=== PATIENT | male | born 1975 | race Caucasian/White ===

== ENCOUNTER 2019-02-05 10:28 | Emergency (ER) | payer MEDICARE ==
[~2019-02-05] VITALS: Ht 182.9 cm; Wt 82.3 kg
[2019-02-05 10:33] VITALS: BP 138/110
--- NOTE | 2019-02-05 12:06 | NUR ---
TELEVISION RECEIVER ANALYZER AT BEDSIDE
== END 2019-02-05 12:16 | disposition home or self-care (01) ==
LOC: ER 10:29
DX: M25.421 Effusion, right elbow (principal)
CPT/HCPCS: 29105; 73080; 99283

== ENCOUNTER 2019-02-14 09:14 | Outpatient (CLI) | payer MEDICARE ==
[2019-02-14 09:21] VITALS: BP 159/105
== END 2019-02-14 09:46 | disposition home or self-care (01) ==
LOC: ORTHO 09:14
PROVIDERS: ATTEND Nurse Practitioner Family
DX: S59.901D Unspecified injury of right elbow, subsequent encounter (principal); I10 Essential (primary) hypertension; Z87.891 Personal history of nicotine dependence; V80.010D Animal-rider injured by fall from or being thrown from horse in noncollision accident, subsequent encounter
CPT/HCPCS: 73080; 99213; A4590

== ENCOUNTER 2023-01-20 08:47 | Emergency (ER) | payer BC, MEDICAID ==
[~2023-01-20] VITALS: Ht 182.9 cm; Wt 79.0 kg
[~2023-01-20 08:47] MED LIST: BACL-11 PO; BUPR-297 PO; GABA-532 PO; HYDR-4353 PO; IBUP-1985 PO; LISI40TA13 PO; METH-603 PO; MONT10TA21 PO; VENL150C58 PO
--- NOTE | 2023-01-20 08:59 | NUR ---
MD AWARE OF CRITICAL GLUCOSE AND PTS NON-HISTORY OF DIABETES. VERBAL ORDER FOR FULL SET OF LABS.
[2023-01-20 09:15] LABS: BASOPHILS % (AUTO) 0.1 % (0-1); EOSINOPHILS # (AUTO) 0.1 X10'3 (0-0.9); EOSINOPHILS % (AUTO) 1.1 % (0-6); HEMATOCRIT 43.9 % (42.0-52.0); HEMOGLOBIN 14.9 g/dl (14.0-17.9); LYMPHOCYTES # (AUTO) 1.4 X10'3 (1.1-4.8); LYMPHOCYTES % (AUTO) 19.4 % (21-51); MEAN CORPUSCULAR HEMOGLOBIN 33.4 PG (27.0-31.0); MEAN CORPUSCULAR HGB CONC 33.8 g/dL (33.0-36.5); MEAN CORPUSCULAR VOLUME 98.7 FL (78-98); MONOCYTES # (AUTO) 0.8 X10'3 (0-0.9); MONOCYTES % (AUTO) 10.6 % (2-12); NEUTROPHILS % (AUTO) 68.8 % (42-75); PLATELET COUNT 212 X10'3 (140-440); RED BLOOD COUNT 4.45 X10'6 (4.70-6.10); RED CELL DISTRIBUTION WIDTH 12.6 % (11.5-14.5); WHITE BLOOD COUNT 7.2 X10'3 (4.5-11.0)
[2023-01-20 09:36] LABS: ALANINE AMINOTRANSFERASE 71 U/L (12-78); ALBUMIN 3.7 G/DL (3.4-5.0); ALKALINE PHOSPHATASE 284 IU/L (46-116); ANION GAP 15 (8-16); BILIRUBIN,TOTAL 0.5 MG/DL (0.1-1.0); BLOOD UREA NITROGEN 15 MG/DL (7-18); BUN/CREATININE RATIO 10.6 (5.4-32.0); CALCIUM 9.4 MG/DL (8.5-10.1); CHLORIDE 88 MMOL/L (99-107); CREATININE 1.42 MG/DL (0.60-1.10); LIPASE 103 U/L (73-393); POTASSIUM 4.7 MMOL/L (3.5-5.1); SODIUM 128 MMOL/L (135-145); TOTAL CARBON DIOXIDE 24.8 MMOL/L (24-32); TOTAL PROTEIN 7.3 G/DL (6.4-8.2); eGFR 53 ML/MIN
[2023-01-20 09:59] LABS: ASPARTATE AMINO TRANSFERASE 33 U/L (10-37)
[2023-01-20 10:02] LABS: GLUCOSE 603 MG/DL (70-104)
[2023-01-20] MEDS: normal saline 1000ml 1,000 ML IV ONE ×2 (10:44→10:55)
[2023-01-20] MEDS: insulin Lispro (HumaLOG) vial - multi-dose SQ ONE (11:03)
[2023-01-20 13:25] LABS: ALBUMIN 3.6 G/DL (3.4-5.0); ANION GAP 8 (8-16); BLOOD UREA NITROGEN 12 MG/DL (7-18); BUN/CREATININE RATIO 9.8 (5.4-32.0); CALCIUM 9.5 MG/DL (8.5-10.1); CHLORIDE 100 MMOL/L (99-107); CREATININE 1.22 MG/DL (0.60-1.10); GLUCOSE 259 MG/DL (70-104); POTASSIUM 3.6 MMOL/L (3.5-5.1); SODIUM 136 MMOL/L (135-145); TOTAL CARBON DIOXIDE 28.1 MMOL/L (24-32); eGFR 63 ML/MIN
[2023-01-20 13:37] VITALS: BP 116/74
[2023-01-20] MEDS ORDERED: METF-900 PO (15:39)
== END 2023-01-20 14:35 | disposition home or self-care (01) ==
LOC: ER 08:47
DX: E11.65 Type 2 diabetes mellitus with hyperglycemia (principal); E86.0 Dehydration; Z79.899 Other long term (current) drug therapy; Z79.1 Long term (current) use of non-steroidal anti-inflammatories (NSAID)
CPT/HCPCS: 36415; 80048; 80053; 82948; 83690; 85025; 96360; 96372; 99283; J1815; J7030

== ENCOUNTER 2023-06-29 06:00 | Emergency (ER) | payer BC, MEDICAID ==
[~2023-06-29] VITALS: Ht 182.9 cm; Wt 78.8 kg
[~2023-06-29 06:00] MED LIST changes: +MONT-47 PO; -MONT10TA21 PO
[2023-06-29 06:25] VITALS: BP 117/84; PULSE 62; TEMP 98; O2SAT 95
[2023-06-29] MEDS ORDERED: morphine 4 MG/ML inj SYRINge IV ONE (10:30)
[2023-06-29] MEDS ORDERED: diazepam inj 5 MG/ML inj. IV ONE (10:30)
[2023-06-29] MEDS ORDERED: ondansetron/PF 4mg/2ml inj IV ONE (10:30)
--- NOTE | 2023-06-29 11:32 | NUR ---
Not in lobby at 1035, 1100 and 1132
== END 2023-06-29 11:33 | disposition left against medical advice (07) ==
LOC: ER 06:00
DX: R10.9 Unspecified abdominal pain (principal); Z53.21 Procedure and treatment not carried out due to patient leaving prior to being seen by health care provider
CPT/HCPCS: 99281

== ENCOUNTER 2023-11-10 03:40 | Emergency (ER) | payer BC, MEDICAID ==
[~2023-11-10] VITALS: Ht 182.9 cm; Wt 75.0 kg
[2023-11-10 03:52] VITALS: BP 140/95; PULSE 95; RESP 17; TEMP 98; O2SAT 97
== END 2023-11-10 07:08 | disposition left against medical advice (07) ==
LOC: ER 03:41
DX: R63.0 Anorexia (principal); Z53.21 Procedure and treatment not carried out due to patient leaving prior to being seen by health care provider
CPT/HCPCS: 99281

== ENCOUNTER 2023-11-19 20:29 | Emergency (ER) | payer BC, MEDICAID ==
[~2023-11-19] VITALS: Ht 182.9 cm; Wt 79.9 kg
[2023-11-19 21:44] LABS: BILIRUBIN,URINE NEGATIVE (Neg); CLARITY,URINE CLEAR (Clear); COLOR,URINE YELLOW (Yellow); GLUCOSE, URINE >=1000 mg/dl (Neg); KETONES,URINE NEGATIVE (Neg); LEUKOCYTE ESTERASE ,URINE NEGATIVE (Neg); NITRITES, URINE NEGATIVE (Neg); OCCULT BLOOD,URINE NEGATIVE (Neg); PROTEIN,URINE NEGATIVE (Neg); UROBILINOGEN,URINE 0.2 E.U/dL (0.2-1.0)
[2023-11-19 21:45] LABS: UA COLLECTION TYPE CLN CATCH MIDSTREAM
[2023-11-19 21:50] LABS: BASOPHILS # (AUTO) 0.1 X10'3 (0-0.2); BASOPHILS % (AUTO) 0.8 % (0-1); EOSINOPHILS # (AUTO) 0.4 X10'3 (0-0.9); EOSINOPHILS % (AUTO) 4.7 % (0-6); HEMATOCRIT 39.2 % (42.0-52.0); HEMOGLOBIN 12.8 g/dl (14.0-17.9); LYMPHOCYTES # (AUTO) 1.7 X10'3 (1.1-4.8); LYMPHOCYTES % (AUTO) 21.8 % (21-51); MEAN CORPUSCULAR HEMOGLOBIN 31.9 PG (27.0-31.0); MEAN CORPUSCULAR HGB CONC 32.7 g/dL (33.0-36.5); MEAN CORPUSCULAR VOLUME 97.4 FL (78-98); MONOCYTES % (AUTO) 12.3 % (2-12); NEUTROPHILS # (AUTO) 4.8 X10'3 (1.8-7.7); NEUTROPHILS % (AUTO) 60.4 % (42-75); PLATELET COUNT 268 X10'3 (140-440); RED BLOOD COUNT 4.03 X10'6 (4.70-6.10); RED CELL DISTRIBUTION WIDTH 14.3 % (11.5-14.5); WHITE BLOOD COUNT 7.9 X10'3 (4.5-11.0)
[2023-11-19 21:51] LABS: WBC,URINE NONE SEEN /HPF (0-4)
[2023-11-19 21:52] LABS: BACTERIA,URINE NONE SEEN /HPF (Neg); MUCUS STRANDS NONE SEEN /LPF (Neg); RBC,URINE 0-2 /HPF (0-2); SQUAMOUS EPITHELIAL CELL,UR FEW /LPF (FEW)
[2023-11-19 22:01] LABS: ALANINE AMINOTRANSFERASE 23 U/L (12-78); ALBUMIN 3.2 G/DL (3.4-5.0); ALBUMIN/GLOBULIN RATIO 0.7 (1.1-1.5); ALKALINE PHOSPHATASE 101 IU/L (46-116); ANION GAP 10 (8-16); ASPARTATE AMINO TRANSFERASE 18 U/L (10-37); BILIRUBIN,TOTAL 0.3 MG/DL (0.1-1.0); BLOOD UREA NITROGEN 8 MG/DL (7-18); BUN/CREATININE RATIO 8.8 (10.0-20.0); CALCIUM 8.9 MG/DL (8.5-10.1); CHLORIDE 100 MMOL/L (99-107); CREATININE 0.91 MG/DL (0.60-1.10); GLUCOSE 255 MG/DL (70-104); POTASSIUM 3.9 MMOL/L (3.5-5.1); SODIUM 137 MMOL/L (135-145); TOTAL PROTEIN 7.6 G/DL (6.4-8.2); eCRCL 107 ML/MIN; eGFR 88 ML/MIN
[2023-11-19 22:19] LABS: LIPASE > 375 U/L (16-77)
[2023-11-19] MEDS ORDERED: meperidine/PF 50mg/ml syringe IV ONE (22:35)
[2023-11-19] MEDS ORDERED: meperidine/PF 25mg/ml syringe IV ONE (23:30)
[2023-11-19] MEDS ORDERED: normal saline 1000ML IV soln IVB ONE (23:30)
[2023-11-19] MEDS ORDERED: diltiazem 5mg/ml 5ml inj. IV ONE (23:40)
[2023-11-19] MEDS ORDERED: HYDROcodone/acetaminophen 10/325mg tab PO ONE (23:40)
[2023-11-19] MEDS ORDERED: carVEDilol 3.125mg tablet PO SCH (23:40)
[2023-11-20 01:07] VITALS: BP 106/80; PULSE 78; RESP 13; TEMP 98.3; O2SAT 98
== END 2023-11-20 01:14 | disposition home or self-care (01) ==
LOC: ER 20:30
DX: K85.90 Acute pancreatitis without necrosis or infection, unspecified (principal)
CPT/HCPCS: 36415; 80053; 81001; 82948; 83690; 85025; 96361; 96374; 99283; J2175; J7030

== ENCOUNTER 2024-05-03 12:31 | Emergency (ER) | payer BC, MEDICAID ==
[~2024-05-03] VITALS: Ht 182.9 cm; Wt 84.4 kg
[~2024-05-03 12:31] MED LIST changes: -IBUP-1985 PO; +LISD60CA PO; +PANT-47 PO
[2024-05-03] MEDS ORDERED: ketorolac trometh. 30mg/ml inj. IM ONE (12:40)
[2024-05-03] MEDS: cyclobenzaprine 10mg tablet PO ONE (13:11)
[2024-05-03] MEDS ORDERED: LIDO700A32 TOP (13:16)
[2024-05-03] MEDS: ketorolac tromethamine 15mg/ml inj. IM ONE (13:16)
[2024-05-03 13:29] VITALS: BP 119/78; PULSE 99; RESP 17; TEMP 98.1; O2SAT 95
== END 2024-05-03 13:32 | disposition home or self-care (01) ==
LOC: ER 12:32
DX: S46.011A Strain of muscle(s) and tendon(s) of the rotator cuff of right shoulder, initial encounter (principal); E11.9 Type 2 diabetes mellitus without complications; F10.90 Alcohol use, unspecified, uncomplicated; Z79.899 Other long term (current) drug therapy; X58.XXXA Exposure to other specified factors, initial encounter; Y93.89 Activity, other specified; Y92.89 Other specified places as the place of occurrence of the external cause; Y99.8 Other external cause status
CPT/HCPCS: 73030; 96372; 99283; J1885; A4565

== ENCOUNTER 2024-05-07 10:04 | Emergency (ER) | payer BC, MEDICAID ==
[~2024-05-07] VITALS: Ht 182.9 cm; Wt 80.2 kg
[~2024-05-07 10:04] MED LIST changes: +LIDO700A32 TOP
[2024-05-07 10:26] VITALS: BP 151/85; PULSE 89; RESP 14; TEMP 98.6; O2SAT 99
[2024-05-07 11:55] LABS: URINE AMPHETAMINE SCREEN NEGATIVE (Neg); URINE BARBITUATE SCREEN NEGATIVE (Neg); URINE BENZODIAZEPINES SCREEN POSITIVE (Neg); URINE CANNABINOID SCREEN NEGATIVE (Neg); URINE COCAINE SCREEN NEGATIVE (Neg); URINE METHADONE SCREEN NEGATIVE (Neg); URINE OPIATE SCREEN NEGATIVE (Neg); URINE PHENCYCLIDINE SCREEN NEGATIVE (Neg)
== END 2024-05-07 12:17 | disposition left against medical advice (07) ==
LOC: ER 10:05
DX: Z51.81 Encounter for therapeutic drug level monitoring (principal); Z53.21 Procedure and treatment not carried out due to patient leaving prior to being seen by health care provider
CPT/HCPCS: 80305

== ENCOUNTER 2024-05-10 08:59 | Emergency (ER) | payer BC, MEDICAID ==
[~2024-05-10] VITALS: Ht 182.9 cm; Wt 85.1 kg
[2024-05-10 09:56] LABS: URINE AMPHETAMINE SCREEN NEGATIVE (Neg); URINE BARBITUATE SCREEN NEGATIVE (Neg); URINE BENZODIAZEPINES SCREEN POSITIVE (Neg); URINE CANNABINOID SCREEN NEGATIVE (Neg); URINE COCAINE SCREEN NEGATIVE (Neg); URINE METHADONE SCREEN NEGATIVE (Neg); URINE OPIATE SCREEN NEGATIVE (Neg); URINE PHENCYCLIDINE SCREEN NEGATIVE (Neg)
[2024-05-10 10:19] VITALS: BP 145/114; PULSE 87; RESP 17; TEMP 98.6; O2SAT 99
== END 2024-05-10 10:21 | disposition home or self-care (01) ==
LOC: ER 09:00
DX: F10.20 Alcohol dependence, uncomplicated (principal); E11.9 Type 2 diabetes mellitus without complications; Z79.899 Other long term (current) drug therapy
CPT/HCPCS: 80305; 99283

== ENCOUNTER 2024-07-04 16:38 | Emergency (ER) | payer BC, MEDICAID ==
[~2024-07-04] VITALS: Ht 182.9 cm; Wt 85.0 kg
[2024-07-04 16:43] VITALS: BP 112/85; O2SAT 95
[2024-07-04 18:35] VITALS: PULSE 77; RESP 14; TEMP 98.2
== END 2024-07-04 18:43 | disposition home or self-care (01) ==
LOC: ER 16:38
DX: S16.1XXA Strain of muscle, fascia and tendon at neck level, initial encounter (principal); S50.01XA Contusion of right elbow, initial encounter; S30.0XXA Contusion of lower back and pelvis, initial encounter; S09.90XA Unspecified injury of head, initial encounter; E11.9 Type 2 diabetes mellitus without complications; W17.81XA Fall down embankment (hill), initial encounter; Y93.89 Activity, other specified; Y92.89 Other specified places as the place of occurrence of the external cause; Y99.8 Other external cause status
CPT/HCPCS: 70450; 72100; 72125; 73080; 73630; 99284; L0172

== ENCOUNTER 2024-07-18 22:23 | Emergency (ER) | payer BC ==
[~2024-07-18] VITALS: Ht 172.7 cm; Wt 78.8 kg
[2024-07-18] MEDS: dextrose 50%-water 50ml dispensing syringe IV ONE ×2 (22:50→22:51)
[2024-07-18] MEDS ORDERED: dextrose ORAL solution 15 GM/59 ML bottle PO ONE (22:50)
[2024-07-18 22:56] LABS: BASOPHILS # (AUTO) 0.1 X10'3 (0-0.2); EOSINOPHILS # (AUTO) 0.3 X10'3 (0-0.9); LYMPHOCYTES % (AUTO) 62.2 % (21-51); MONOCYTES # (AUTO) 0.7 X10'3 (0-0.9)
[2024-07-18 22:57] LABS: BASOPHILS % (AUTO) 1.3 % (0-1); EOSINOPHILS % (AUTO) 2.6 % (0-6); HEMATOCRIT 42.7 % (42.0-52.0); HEMOGLOBIN 14.2 g/dl (14.0-17.9); LYMPHOCYTES # (AUTO) 6.8 X10'3 (1.1-4.8); MEAN CORPUSCULAR HEMOGLOBIN 33.3 PG (27.0-31.0); MEAN CORPUSCULAR HGB CONC 33.3 g/dL (33.0-36.5); MEAN CORPUSCULAR VOLUME 100.1 FL (78-98); MEAN PLATELET VOLUME 7.4 FL (7.4-10.4); MONOCYTES % (AUTO) 6.6 % (2-12); NEUTROPHILS % (AUTO) 27.3 % (42-75); PLATELET COUNT 269 X10'3 (140-440); RED BLOOD COUNT 4.27 X10'6 (4.70-6.10)
[2024-07-18 23:05] LABS: ALBUMIN 3.3 G/DL (3.4-5.0); ANION GAP 9 (8-16); BLOOD UREA NITROGEN 4 MG/DL (7-18); BUN/CREATININE RATIO 4.4 (10.0-20.0); CALCIUM 8.5 MG/DL (8.5-10.1); CHLORIDE 112 MMOL/L (99-107); ETHANOL 267 MG/DL (<10); SODIUM 148 MMOL/L (135-145); TOTAL CARBON DIOXIDE 26.7 MMOL/L (24-32); eCRCL 95 ML/MIN; eGFR 89 ML/MIN
[2024-07-18 23:14] LABS: GLUCOSE 30 MG/DL (70-104); POTASSIUM 2.9 MMOL/L (3.5-5.1)
[2024-07-19 00:06] LABS: TOTAL CELLS COUNTED 100
[2024-07-19 00:07] LABS: PLATELET ESTIMATE NORMAL
[2024-07-19 00:08] LABS: SMUDGE CELLS 1+
[2024-07-19 02:07] LABS: URINE AMPHETAMINE SCREEN NEGATIVE (Neg); URINE BARBITUATE SCREEN NEGATIVE (Neg); URINE BENZODIAZEPINES SCREEN POSITIVE (Neg); URINE CANNABINOID SCREEN NEGATIVE (Neg); URINE COCAINE SCREEN NEGATIVE (Neg); URINE METHADONE SCREEN NEGATIVE (Neg); URINE OPIATE SCREEN NEGATIVE (Neg); URINE PHENCYCLIDINE SCREEN NEGATIVE (Neg)
[2024-07-19] MEDS: potassium Cl 20 mEq SR tablet PO STA ×2 (04:30→12:07)
[2024-07-19] MEDS ORDERED: BUPR75TA8 PO (04:40)
[2024-07-19] MEDS ORDERED: SEMA0.258 SQ (04:40)
[2024-07-19] MEDS ORDERED: CLON0.1T2 PO (04:40)
[2024-07-19] MEDS ORDERED: LAMO100T PO (04:40)
[2024-07-19] MEDS ORDERED: HYDR-3717 PO (04:40)
[2024-07-19] MEDS ORDERED: INSU100I8 SQ (04:40)
[2024-07-19] MEDS ORDERED: PANT40TA54 PO (04:40)
[2024-07-19 05:44] VITALS: TEMP 97.6
[2024-07-19] MEDS: INSULIN LISPRO 100 UNIT/ML INSULN.PEN MULTI-DOSE SQ SCH (08:00)
[2024-07-19] MEDS ORDERED: lisdexamfetamine dimesylate 60mg capsule PO SCH (08:00)
[2024-07-19] MEDS: buPROPion 75mg tablet PO SCH (08:30)
[2024-07-19] MEDS: venlafaxine XR 75mg capsule (Q24H) PO SCH (08:30)
[2024-07-19] MEDS: lisinopril 20mg tablet PO SCH (08:30)
[2024-07-19] MEDS: gabapentin 300mg capsule PO SCH (08:30)
[2024-07-19] MEDS: lamoTRIgine 100mg tablet PO SCH (08:30)
[2024-07-19] MEDS: pantoprazole 40mg Tablet.DR PO SCH (08:30)
[2024-07-19] MEDS: lisdexamfetamine dimesylate 10mg capsule PO SCH (09:25)
[2024-07-19 12:02] LABS: BASOPHILS % (AUTO) 1.1 % (0-1); EOSINOPHILS # (AUTO) 0.1 X10'3 (0-0.9); EOSINOPHILS % (AUTO) 1.3 % (0-6); HEMATOCRIT 39.2 % (42.0-52.0); HEMOGLOBIN 13.1 g/dl (14.0-17.9); LYMPHOCYTES # (AUTO) 1.2 X10'3 (1.1-4.8); LYMPHOCYTES % (AUTO) 24.9 % (21-51); MEAN CORPUSCULAR HEMOGLOBIN 33.6 PG (27.0-31.0); MEAN CORPUSCULAR HGB CONC 33.5 g/dL (33.0-36.5); MEAN CORPUSCULAR VOLUME 100.2 FL (78-98); MEAN PLATELET VOLUME 7.8 FL (7.4-10.4); MONOCYTES # (AUTO) 0.4 X10'3 (0-0.9); MONOCYTES % (AUTO) 8.4 % (2-12); NEUTROPHILS % (AUTO) 64.3 % (42-75); PLATELET COUNT 163 X10'3 (140-440); RED BLOOD COUNT 3.92 X10'6 (4.70-6.10); RED CELL DISTRIBUTION WIDTH 16.1 % (11.5-14.5); WHITE BLOOD COUNT 4.7 X10'3 (4.5-11.0)
[2024-07-19 12:07] VITALS: BP 180/123; PULSE 85; RESP 16; O2SAT 96
[2024-07-19 12:16] LABS: ALANINE AMINOTRANSFERASE 32 U/L (12-78); ALBUMIN/GLOBULIN RATIO 0.8 (1.1-1.5); ALKALINE PHOSPHATASE 88 IU/L (46-116); ANION GAP 5 (8-16); ASPARTATE AMINO TRANSFERASE 44 U/L (10-37); BILIRUBIN,TOTAL 0.3 MG/DL (0.1-1.0); BLOOD UREA NITROGEN 5 MG/DL (7-18); BUN/CREATININE RATIO 5.2 (10.0-20.0); CALCIUM 8.7 MG/DL (8.5-10.1); CHLORIDE 106 MMOL/L (99-107); CREATININE 0.96 MG/DL (0.60-1.10); GLUCOSE 197 MG/DL (70-104); POTASSIUM 5.1 MMOL/L (3.5-5.1); SODIUM 140 MMOL/L (135-145); eCRCL 89 ML/MIN; eGFR 83 ML/MIN
[2024-07-19] MEDS ORDERED: hydrOXYzine 10 MG tablet PO SCH (21:00)
== END 2024-07-19 12:12 | disposition home or self-care (01) ==
LOC: ER 22:24
DX: R45.851 Suicidal ideations (principal); Z20.822 Contact with and (suspected) exposure to COVID-19; E11.9 Type 2 diabetes mellitus without complications; Z79.899 Other long term (current) drug therapy; Z79.4 Long term (current) use of insulin
CPT/HCPCS: 36415; 80048; 80053; 80305; 80320; 82948; 85007; 85025; 87811; 99285; J3490; A4615

== ENCOUNTER 2024-08-15 19:10 | Emergency (ER) | payer BC ==
[~2024-08-15] VITALS: Ht 182.9 cm; Wt 87.2 kg
[~2024-08-15 19:10] MED LIST changes: -BACL-11 PO; -BUPR-297 PO; +BUPR75TA8 PO; +CLON0.1T2 PO; +HYDR-3717 PO; -HYDR-4353 PO; +INSU100I8 SQ; +LAMO100T PO; -LIDO700A32 TOP; -METH-603 PO; -PANT-47 PO; +PANT40TA54 PO; +SEMA0.258 SQ
[2024-08-15 19:20] VITALS: O2SAT 98
[2024-08-15] MEDS: LIDOcaine 1% W/epiNEPHrine 1:100,000 20ml vial SQ STA (20:21)
[2024-08-15 21:51] VITALS: BP 128/80; PULSE 80; RESP 18; TEMP 97.9
== END 2024-08-15 21:54 | disposition home or self-care (01) ==
LOC: ER 19:11
DX: S61.212A Laceration without foreign body of right middle finger without damage to nail, initial encounter (principal); S61.214A Laceration without foreign body of right ring finger without damage to nail, initial encounter; E11.9 Type 2 diabetes mellitus without complications; Z79.899 Other long term (current) drug therapy; X58.XXXA Exposure to other specified factors, initial encounter; Y93.89 Activity, other specified; Y92.89 Other specified places as the place of occurrence of the external cause; Y99.8 Other external cause status
CPT/HCPCS: 12001; 82948; 99283; A6222; A6449

== ENCOUNTER 2024-10-12 02:35 | Inpatient (IN) | payer BC, MEDICAID ==
[~2024-10-12] VITALS: Ht 182.9 cm; Wt 81.8 kg
[2024-10-12 02:58] LABS: BASOPHILS % (AUTO) 0.3 % (0-1); EOSINOPHILS % (AUTO) 0.2 % (0-6); HEMATOCRIT 42.2 % (42.0-52.0); HEMOGLOBIN 14.5 g/dl (14.0-17.9); LYMPHOCYTES # (AUTO) 1.1 X10'3 (1.1-4.8); LYMPHOCYTES % (AUTO) 10.2 % (21-51); MEAN CORPUSCULAR HEMOGLOBIN 35.6 PG (27.0-31.0); MEAN CORPUSCULAR HGB CONC 34.4 g/dL (33.0-36.5); MEAN CORPUSCULAR VOLUME 103.6 FL (78-98); MEAN PLATELET VOLUME 9.1 FL (7.4-10.4); MONOCYTES % (AUTO) 9.2 % (2-12); NEUTROPHILS # (AUTO) 8.9 X10'3 (1.8-7.7); NEUTROPHILS % (AUTO) 80.1 % (42-75); PLATELET COUNT 137 X10'3 (140-440); RED BLOOD COUNT 4.08 X10'6 (4.70-6.10); RED CELL DISTRIBUTION WIDTH 14.4 % (11.5-14.5); WHITE BLOOD COUNT 11.1 X10'3 (4.5-11.0)
[2024-10-12 03:15] LABS: ALANINE AMINOTRANSFERASE 52 U/L (12-78); ALBUMIN 4.2 G/DL (3.4-5.0); ALBUMIN/GLOBULIN RATIO 1.1 (1.1-1.5); ALKALINE PHOSPHATASE 118 IU/L (46-116); ANION GAP 16 (8-16); ASPARTATE AMINO TRANSFERASE 29 U/L (10-37); BLOOD UREA NITROGEN 12 MG/DL (7-18); BUN/CREATININE RATIO 11.3 (10.0-20.0); CHLORIDE 97 MMOL/L (99-107); CREATININE 1.06 MG/DL (0.60-1.10); GLUCOSE 268 MG/DL (70-104); LIPASE 114 U/L (16-77); POTASSIUM 4.8 MMOL/L (3.5-5.1); SODIUM 134 MMOL/L (135-145); TOTAL CARBON DIOXIDE 21.3 MMOL/L (24-32); TOTAL PROTEIN 7.9 G/DL (6.4-8.2); eCRCL 92 ML/MIN; eGFR 74 ML/MIN
[2024-10-12] MEDS: morphine 4 MG/ML inj SYRINge IV ONE ×2 (03:22→03:55)
[2024-10-12] MEDS: proCHLORperazine 10 MG/2 ml inj IV ONE (03:23)
[2024-10-12] MEDS: normal saline 1000ml 1,000 ML IV ONE ×2 (03:24→04:14)
[2024-10-12 03:37] LABS: ETHANOL < 10 MG/DL (<10)
[2024-10-12] MEDS: metoclopramide 5 mg/ml inj IV ONE (03:55)
[2024-10-12 04:49] LABS: BILIRUBIN,URINE NEGATIVE (Neg); CLARITY,URINE CLEAR (Clear); COLOR,URINE YELLOW (Yellow); GLUCOSE, URINE 250 mg/dl (Neg); KETONES,URINE >=80 mg/dl (Neg); LEUKOCYTE ESTERASE ,URINE NEGATIVE (Neg); NITRITES, URINE NEGATIVE (Neg); OCCULT BLOOD,URINE NEGATIVE (Neg); PH,URINE 5.5 (4.8-8.0); PROTEIN,URINE 30 mg/dl (Neg); UROBILINOGEN,URINE 0.2 E.U/dL (0.2-1.0)
[2024-10-12 04:50] LABS: UA COLLECTION TYPE CLN CATCH MIDSTREAM
[2024-10-12 04:57] LABS: BACTERIA,URINE FEW /HPF (Neg); MUCUS STRANDS FEW /LPF (Neg); RBC,URINE NONE SEEN /HPF (0-2); SQUAMOUS EPITHELIAL CELL,UR FEW /LPF (FEW); WBC,URINE NONE SEEN /HPF (0-4)
[2024-10-12 05:16] LABS: URINE AMPHETAMINE SCREEN NEGATIVE (Neg); URINE BARBITUATE SCREEN NEGATIVE (Neg); URINE BENZODIAZEPINES SCREEN NEGATIVE (Neg); URINE CANNABINOID SCREEN NEGATIVE (Neg); URINE COCAINE SCREEN NEGATIVE (Neg); URINE METHADONE SCREEN NEGATIVE (Neg); URINE OPIATE SCREEN POSITIVE (Neg); URINE PHENCYCLIDINE SCREEN NEGATIVE (Neg)
[2024-10-12] MEDS ORDERED: HYDROmorphone/PF 0.2 MG/ML SYRINGE IV PRN (05:25)
[2024-10-12] MEDS ORDERED: potassium Cl 40MEQ/1/2NS 520ml 520 ML IV PRN (05:25)
[2024-10-12] MEDS ORDERED: acetaminophen 325mg tablet PO PRN ×2 (05:25)
[2024-10-12] MEDS ORDERED: HYDROmorphone inj. 0.5 MG/0.5 ML DISP.SYRIN IV PRN (05:25)
[2024-10-12] MEDS ORDERED: LORazepam 1 MG tablet PO PRN (05:25)
[2024-10-12] MEDS ORDERED: haloperidol 5mg tablet PO PRN (05:25)
[2024-10-12] MEDS ORDERED: LORazepam 2 mg/ml vial IV PRN (05:25)
[2024-10-12] MEDS ORDERED: potassium Cl 20 mEq SR tablet PO PRN (05:25)
[2024-10-12] MEDS ORDERED: magnesium hydroxide 30ml (MOM) UD suspension PO PRN (05:25)
[2024-10-12] MEDS ORDERED: magnesium sulf-water 2g/50mL 50 ML IV PRN (05:25)
[2024-10-12] MEDS ORDERED: HYDROcodone/acetaminophen 5mg/325mg tablet PO PRN (05:25)
[2024-10-12] MEDS ORDERED: mag hydrox/Alum hydrox/simeth 30ml oral suspension PO PRN (05:25)
[2024-10-12] MEDS ORDERED: ondansetron/PF 4mg/2ml inj IV PRN (05:25)
[2024-10-12] MEDS ORDERED: dextrose 50%-water 50ml dispensing syringe IV PRN ×3 (05:25→05:35)
[2024-10-12] MEDS ORDERED: HYDROcodone/acetaminophen 10/325mg tab PO PRN (05:25)
[2024-10-12] MEDS ORDERED: haloperidol lactate 5mg/ml inj IM PRN (05:25)
[2024-10-12] MEDS ORDERED: magnesium sulf-water 4G/100mL 100 ML IV PRN (05:25)
[2024-10-12] MEDS ORDERED: glucagon, human recombinant 1mg kit SUBCUT PRN (05:35)
[2024-10-12] MEDS ORDERED: DEXTROSE 15 GM of carb/4 tabs (each vial/BOTTLE has 4 tablets) PO PRN ×2 (05:35)
[2024-10-12] MEDS: HYDROmorphone inj. 0.5 MG/0.5 ML DISP.SYRIN IV ONE (05:41)
[2024-10-12] MEDS: normal saline 1000ml 1,000 ML IV SCH (06:00)
[2024-10-12 06:01] LABS: PROTHROMBIN TIME 10.9 SECONDS (9.0-12.0)
[2024-10-12 06:19] LABS: HEMOGLOBIN A1C 7.6 % (4.5-6.2)
[2024-10-12 06:21] LABS: AMYLASE 76 U/L (25-115); MAGNESIUM 1.4 MG/DL (1.5-2.4)
[2024-10-12] MEDS: INSULIN LISPRO 100 UNIT/ML INSULN.PEN MULTI-DOSE SQ SCH ×4 (07:27→17:30)
[2024-10-12] MEDS: buPROPion 75mg tablet PO SCH (08:00)
[2024-10-12] MEDS: lamoTRIgine 100mg tablet PO SCH (08:00)
[2024-10-12] MEDS: lisinopril 20mg tablet PO SCH (08:00)
[2024-10-12] MEDS: venlafaxine XR 75mg capsule (Q24H) PO SCH (08:00)
[2024-10-12] MEDS: multivitamins, therapeutics tablet PO SCH (08:00)
[2024-10-12] MEDS: K and/or MAG REPLACEMENT MC SCH (08:00)
[2024-10-12] MEDS: thiamine 100mg/ml 2ml inj. IV SCH (08:00)
[2024-10-12] MEDS: folic acid 1mg/0.2ml inj IV SCH (08:00)
[2024-10-12] MEDS: docusate sod 100mg capsule PO SCH (08:00)
[2024-10-12] MEDS: pantoprazole 40 MG vial IV SCH (08:05)
[2024-10-12 08:47] LABS: POTASSIUM 4.9 MMOL/L (3.5-5.1)
[2024-10-12] MEDS: amLODIPine 5mg tablet PO SCH (08:58)
[2024-10-12] MEDS ORDERED: GABA300T28 (10:48)
[2024-10-12 12:30] VITALS: BP 145/109; PULSE 78; RESP 16; TEMP 97.8; O2SAT 98
[2024-10-12 18:00] VITALS: BP 151/114; PULSE 115; RESP 14; TEMP 98; O2SAT 96
[2024-10-12] MEDS ORDERED: folic acid 1mg/0.2ml inj IV SCH (18:50)
[2024-10-12 20:00] VITALS: RESP 16; O2SAT 96
[2024-10-12] MEDS ORDERED: thiamine 100mg/ml 2ml inj. IV SCH (21:00)
[2024-10-12 22:00] VITALS: BP 118/88; PULSE 117; RESP 16; TEMP 98.1; O2SAT 96
[2024-10-12] MEDS: insulin glargine (Lantus) pen - multi-dose SQ SCH (22:34)
[2024-10-12] MEDS: magnesium Cl slow-release 64mg tablet PO PRN (23:54)
[2024-10-13 06:43] VITALS: BP 139/103; PULSE 121; RESP 16; TEMP 98.1; O2SAT 93
[2024-10-13 07:29] VITALS: RESP 16
[2024-10-13 07:48] LABS: BASOPHILS % (AUTO) 0.4 % (0-1); EOSINOPHILS # (AUTO) 0.1 X10'3 (0-0.9); EOSINOPHILS % (AUTO) 1.6 % (0-6); HEMATOCRIT 41.2 % (42.0-52.0); HEMOGLOBIN 13.9 g/dl (14.0-17.9); LYMPHOCYTES # (AUTO) 0.8 X10'3 (1.1-4.8); LYMPHOCYTES % (AUTO) 12.5 % (21-51); MEAN CORPUSCULAR HGB CONC 33.8 g/dL (33.0-36.5); MEAN CORPUSCULAR VOLUME 103.6 FL (78-98); MEAN PLATELET VOLUME 9.1 FL (7.4-10.4); MONOCYTES # (AUTO) 0.9 X10'3 (0-0.9); MONOCYTES % (AUTO) 13.4 % (2-12); NEUTROPHILS # (AUTO) 4.7 X10'3 (1.8-7.7); NEUTROPHILS % (AUTO) 72.1 % (42-75); PLATELET COUNT 113 X10'3 (140-440); RED BLOOD COUNT 3.97 X10'6 (4.70-6.10); RED CELL DISTRIBUTION WIDTH 14.5 % (11.5-14.5); WHITE BLOOD COUNT 6.6 X10'3 (4.5-11.0)
[2024-10-13 07:54] LABS: INR 1.1 INR; PROTHROMBIN TIME 11.3 SECONDS (9.0-12.0)
[2024-10-13] MEDS ORDERED: multivitamins, therapeutics tablet PO SCH (08:00)
[2024-10-13 08:38] LABS: ALANINE AMINOTRANSFERASE 42 U/L (12-78); ALBUMIN 3.2 G/DL (3.4-5.0); ALBUMIN/GLOBULIN RATIO 0.8 (1.1-1.5); ALKALINE PHOSPHATASE 76 IU/L (46-116); ANION GAP 12 (8-16); ASPARTATE AMINO TRANSFERASE 18 U/L (10-37); BILIRUBIN,TOTAL 0.9 MG/DL (0.1-1.0); BLOOD UREA NITROGEN 3 MG/DL (7-18); BUN/CREATININE RATIO 3.9 (10.0-20.0); CALCIUM 8.7 MG/DL (8.5-10.1); CHLORIDE 102 MMOL/L (99-107); CHOL/HDL RATIO 2.2 (0.00-4.99); CHOLESTEROL 119 MG/DL (0-200); CREATININE 0.77 MG/DL (0.60-1.10); GLUCOSE 148 MG/DL (70-104); HDL CHOLESTEROL 54 MG/DL (35-60); MAGNESIUM 1.4 MG/DL (1.5-2.4); PHOSPHORUS 2.9 MG/DL (2.3-4.5); POTASSIUM 3.6 MMOL/L (3.5-5.1); SODIUM 136 MMOL/L (135-145); TOTAL CARBON DIOXIDE 21.9 MMOL/L (24-32); TOTAL PROTEIN 7.1 G/DL (6.4-8.2); TRIGLYCERIDES 61 MG/DL (20-135); eCRCL 126 ML/MIN; eGFR > 90 ML/MIN
[2024-10-13 08:41] LABS: LDL CHOLESTEROL 59 MG/DL (50-100)
[2024-10-13 09:19] LABS: LIPASE 43 U/L (16-77)
[2024-10-13 10:00] VITALS: BP 130/94; PULSE 101; RESP 14; TEMP 97.8; O2SAT 97
[2024-10-13] MEDS: magnesium oxide 400mg tablet PO ONE (13:54)
[2024-10-13 18:00] VITALS: BP 135/99; PULSE 92; RESP 16; TEMP 97.8; O2SAT 96
[2024-10-13] MEDS: magnesium oxide 400mg tablet PO SCH (19:45)
[2024-10-13 20:00] VITALS: RESP 16; O2SAT 96
[2024-10-13 22:00] VITALS: BP 120/96; PULSE 95; RESP 19; TEMP 97.5; O2SAT 96
[2024-10-14 05:00] VITALS: BP_SYST 119; BP_SYST 138; BP_DIAS 77; BP_DIAS 90; PULSE 73; PULSE 81; RESP 19; TEMP 96.9; TEMP 98.3; O2SAT 97
[2024-10-14 05:12] LABS: LYMPHOCYTES # (AUTO) 0.9 X10'3 (1.1-4.8); MONOCYTES # (AUTO) 0.8 X10'3 (0-0.9); NEUTROPHILS # (AUTO) 3.1 X10'3 (1.8-7.7); WHITE BLOOD COUNT 5.1 X10'3 (4.5-11.0)
[2024-10-14 05:13] LABS: BASOPHILS % (AUTO) 0.5 % (0-1); EOSINOPHILS # (AUTO) 0.1 X10'3 (0-0.9); EOSINOPHILS % (AUTO) 2.6 % (0-6); HEMATOCRIT 37.8 % (42.0-52.0); HEMOGLOBIN 13.1 g/dl (14.0-17.9); MEAN CORPUSCULAR HEMOGLOBIN 35.7 PG (27.0-31.0); MEAN CORPUSCULAR HGB CONC 34.6 g/dL (33.0-36.5); MEAN CORPUSCULAR VOLUME 103.4 FL (78-98); MONOCYTES % (AUTO) 16.8 % (2-12); NEUTROPHILS % (AUTO) 62.1 % (42-75); PLATELET COUNT 122 X10'3 (140-440); RED BLOOD COUNT 3.66 X10'6 (4.70-6.10); RED CELL DISTRIBUTION WIDTH 14.2 % (11.5-14.5)
[2024-10-14 05:25] LABS: INR 1.5 INR; PROTHROMBIN TIME 15.6 SECONDS (9.0-12.0)
[2024-10-14 05:27] LABS: ALANINE AMINOTRANSFERASE 28 U/L (12-78); ALBUMIN/GLOBULIN RATIO 0.8 (1.1-1.5); ALKALINE PHOSPHATASE 70 IU/L (46-116); ANION GAP 9 (8-16); ASPARTATE AMINO TRANSFERASE 15 U/L (10-37); BILIRUBIN,TOTAL 0.6 MG/DL (0.1-1.0); BLOOD UREA NITROGEN 5 MG/DL (7-18); BUN/CREATININE RATIO 7.5 (10.0-20.0); CALCIUM 8.4 MG/DL (8.5-10.1); CHLORIDE 101 MMOL/L (99-107); CREATININE 0.67 MG/DL (0.60-1.10); GLUCOSE 123 MG/DL (70-104); MAGNESIUM 1.5 MG/DL (1.5-2.4); PHOSPHORUS 2.8 MG/DL (2.3-4.5); POTASSIUM 3.4 MMOL/L (3.5-5.1); SODIUM 135 MMOL/L (135-145); TOTAL CARBON DIOXIDE 24.9 MMOL/L (24-32); TOTAL PROTEIN 6.8 G/DL (6.4-8.2); eCRCL 145 ML/MIN; eGFR > 90 ML/MIN
[2024-10-14] MEDS ORDERED: thiamine tablet PO (07:22)
[2024-10-14] MEDS ORDERED: FOLI1TAB27 PO (07:22)
[2024-10-14] MEDS ORDERED: MULT-25 PO (07:22)
[2024-10-14 08:37] VITALS: BP_SYST 119; PULSE 73
[2024-10-14] MEDS: potassium Cl 20 mEq SR tablet PO PRN (08:40)
[2024-10-14 09:31] VITALS: RESP 16; O2SAT 97
[2024-10-16] MEDS ORDERED: thiamine 100mg tablet PO SCH (08:00)
[2024-10-16] MEDS ORDERED: folic acid 1mg tablet PO SCH (08:00)
== END 2024-10-14 15:19 | disposition home or self-care (01) | DRG 391 ==
LOC: ER 02:36 → UNDOADMIN 05:32 → ED HOLD 05:32 → ORTHO 4S 12:15 → ED HOLD 12:15 → UNDODISIN 10-14 15:19
PROVIDERS: ADMIT Internal Medicine Critical Care Medicine; ATTEND Family Medicine
DX: K29.70 Gastritis, unspecified, without bleeding (principal); K85.90 Acute pancreatitis without necrosis or infection, unspecified; K86.1 Other chronic pancreatitis; K86.3 Pseudocyst of pancreas; K29.80 Duodenitis without bleeding; I10 Essential (primary) hypertension; F10.20 Alcohol dependence, uncomplicated; E11.9 Type 2 diabetes mellitus without complications; Z87.891 Personal history of nicotine dependence; Z79.4 Long term (current) use of insulin; Z79.899 Other long term (current) drug therapy
CPT/HCPCS: 36415; 71045; 74176; 80053; 80061; 80305; 80320; 81001; 82150; 82948; 83036; 83605; 83615; 83690; 83735; 84100; 84132; 84145; 84484; 85025; 85610; 87081; 93005; 96374; 96375; 99285; G0378; J0780; J1171; J1815; J2270; J2470; J2765; J3411; J3490; J7030

== ENCOUNTER 2025-07-01 23:47 | Emergency (ER) | payer BC, MEDICAID ==
[~2025-07-01 23:47] MED LIST changes: -CLON0.1T2 PO; +FOLI1TAB27 PO; -GABA-532 PO; +GABA300T28; -LISI40TA13 PO; +LISI40TA20 PO; +MULT-25 PO; +thiamine tablet PO
[2025-07-01 23:48] VITALS: BP 135/86; PULSE 99; RESP 16; TEMP 98; O2SAT 98
== END 2025-07-02 00:45 | disposition left against medical advice (07) ==
LOC: ER 23:47
DX: Z00.00 Encounter for general adult medical examination without abnormal findings (principal); Z53.21 Procedure and treatment not carried out due to patient leaving prior to being seen by health care provider
CPT/HCPCS: 82948

== ENCOUNTER 2025-10-02 19:28 | Emergency (ER) | payer BC ==
[~2025-10-02] VITALS: Ht 180.3 cm; Wt 72.7 kg
[~2025-10-02 19:28] MED LIST changes: -BUPR75TA8 PO; +GABA-535 PO; +METO-292 PO; +[UNRECOGNIZED DRUG - CODE] PO
[2025-10-02 19:43] VITALS: BP 109/86; PULSE 121; RESP 20; O2SAT 93
--- NOTE | 2025-10-02 20:25 | Physician Documentation ---
History of Present Illness ~ Chief Complaint: Medical Clearance Stated Complaint: MED CLEARANCE Time Seen by MD: 19:43 Primary Medical Doctor: Rickeykristal FOFANA Is a 49-year-old male that presents to the emergency department in the custody the [facility]. Patient has been brought to the emergency department for medical clearance. Patient has no complaints of fever chills nausea vomiting diarrhea injuries chest pain shortness of breath headache or any other symptoms at this time. He is medically clear to be incarcerated with the [facility] at this time. Tetanus within 5 years?: Yes Medication Reconciliation Allergies: Coded Allergies: No Known Allergies (Unverified , 08/02/25) Scheduled Bupropion HCl (Bupropion HCl), 1 TAB PO DAILY, (Reported) Folic Acid* (Folic Acid*), 1 MG PO DAILY Gabapentin (Gabapentin), 1 CAP PO Q8H Hydroxyzine Hcl* (Atarax*), 1 TAB PO HS, (Reported) Insulin Lispro (Humalog), 5 UNITS SQ TID, (Reported) Lamotrigine (LaMICtal tablet), 1 TAB PO BID, (Reported) Lisdexamfetamine Dimesylate (Vyvanse), 1 CAP PO DAILY, (Reported) Lisinopril* (Lisinopril*), 1 TAB PO DAILY, (Reported) Metoclopramide HCl (Reglan), 1 TAB PO Q8H Montelukast Sodium (Singulair), 1 TAB PO DAILY, (Reported) Multivitamin with Folic Acid (Thera Tablet), 1 EACH PO Q24H Pantoprazole Sodium (Pantoprazole Sodium), 1 TAB PO BID, (Reported) Pantoprazole Sodium (Pantoprazole Sodium), 1 TAB PO DAILY Semaglutide (Ozempic), 0.25 MG SQ Q7D, (Reported) Venlafaxine Hcl (Venlafaxine Hcl Er), 1 CAP PO DAILY, (Reported) [thiamine tablet], 100 MG PO DAILY Miscellaneous Medications Gabapentin (Gabapentin ER), (Reported) Past Medical History Past Medical History: Pancreatitis, Diabetes Past Surgical History: no surgical history Alcohol Use: Alcoholic Drug Use: none Lives with: Family Lives In: Home Occupation: disabled Review of Systems ROS As stated above in the HPI, otherwise all systems are reviewed and negative. Physical Exam Vital Signs: Temperature: 98.6, Source: Oral, Heart Rate: 121, Respiratory Rate: 20, BP: 109/86, Pulse Oximetry: 93, Weight: 72.730 Physical Exam VITALS: Reviewed and as above. GENERAL: Alert, no apparent distress. HEENT: Normocephalic, atraumatic, PERRL, EOMI, dry mucosa, no erythema RESPIRATORY: Lungs clear, normal breath sounds, no respiratory distress. CHEST: No accessory muscle use, no retractions CV: Regular rate, rhythm, no edema, no murmur, No: JVD GI: Soft, non-tender, bowels sounds present, no rebound, guarding, or rigidity BACK: No CVA tenderness, or swelling MUSCULOSKELETAL No deformities, no edema SKIN: Warm and dry, no rash NEURO: Oriented x4, No motor or sensory deficit PSYCH: Normal mood and affect, no agitation Progress Results/Orders Results/Orders Vital Signs 10/02/25 19:43 Temp 98.6 Pulse 121 Resp 20 B/P (MAP) 109/86 Pulse Ox 93 Laboratory Tests Test 10/02/25 19:40 Glucometer 215 H Medical Decision Making Additional information obtaine: other Findings Is a 49-year-old male that presents to the emergency department in the custody the [facility]. Patient has been brought to the emergency department for medical clearance. Patient has no complaints of fever chills nausea vomiting diarrhea injuries chest pain shortness of breath headache or any other symptoms at this time. He is medically clear to be incarcerated with the [facility] at this time. Differential Dx:Considerations: Include: Intoxication-Alcohol, Intoxication- Other drug, Personality disorder, Substance abuse disorder, Acute delirium, Closed head injury, Cervical spine injury, Skull fracture, Fracture(s), Abrasion, Contusion, Foreign body, Hematoma, Laceration, Alcohol withdrawl syndrom, Encephalopathy, Hepatitis, Medically stable, Other Departure Disposition: 01 HOME / SELF CARE / HOMELESS Impression: Primary Impression: General medical exam Condition: Stable Discharge Instructions: Medical Screening Exam Additional Instructions: Is a 49-year-old male that presents to the emergency department in the custody the [facility]. Patient has been brought to the emergency department for medical clearance. Patient has no complaints of fever chills nausea vomiting diarrhea injuries chest pain shortness of breath headache or any other symptoms at this time. He is medically clear to be [facility]. Referrals: NO PRIMARY CARE PROVIDER (PCP) Education Educated: Patient Educated regarding: diagnosis, treatment, need for follow up Signature Scribe Signature: A Attestation: Scribed for Jasmina Tripp by ENRIKE Diaz . 10/02/25 20:24 JASMINA TRIPP Oct 02, 2025 20:25
[2025-10-02 20:28] VITALS: TEMP 98.6
== END 2025-10-02 20:28 | disposition home or self-care (01) ==
LOC: ER 19:28
DX: Z00.00 Encounter for general adult medical examination without abnormal findings (principal); E11.9 Type 2 diabetes mellitus without complications
CPT/HCPCS: 82948; 99283

== ENCOUNTER 2025-10-07 15:25 | Emergency (ER) | payer BC ==
[~2025-10-07] VITALS: Ht 182.9 cm; Wt 70.3 kg
[2025-10-07 15:33] VITALS: TEMP 96.3
[2025-10-07 16:11] LABS: MEAN PLATELET VOLUME 9.3 FL (7.4-10.4); RED CELL DISTRIBUTION WIDTH 14.7 % (11.5-14.5)
[2025-10-07 16:14] LABS: CREATININE 0.86 MG/DL (0.60-1.10); TOTAL CARBON DIOXIDE 27.0 MMOL/L (24-32); eCRCL 101 ML/MIN; eGFR > 90 ML/MIN
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
[2025-10-07] MEDS: ketorolac trometh 15mg/ml vial 15 MG/ML ML IM ONE (17:24)
[2025-10-07] MEDS: insulin regular, human 10 units/0.1 ml syringe SQ ONE (17:26)
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
--- NOTE | 2025-10-07 17:34 | RADIOLOGY REPORT ---
CHEST RADIOGRAPH Indication: rib pain Technique: Single frontal view of the chest was obtained. Comparison: DI CHEST,SINGLE VIEW on DOS: 08/02/25 Findings: No focal consolidation. No significant pleural effusion. No pneumothorax. Stable cardiomediastinal silhouette. IMPRESSION: No acute cardiopulmonary process.
[2025-10-07 17:44] VITALS: BP 143/95; PULSE 83; RESP 18; O2SAT 100
== END 2025-10-07 17:48 | disposition home or self-care (01) ==
LOC: ER 15:26
DX: Z00.01 Encounter for general adult medical examination with abnormal findings (principal); M25.511 Pain in right shoulder; E11.65 Type 2 diabetes mellitus with hyperglycemia; Z87.19 Personal history of other diseases of the digestive system; Z79.899 Other long term (current) drug therapy
CPT/HCPCS: 36415; 71045; 73030; 80048; 82948; 85025; 96372; 99284; J1815; J1885; A4565

== ENCOUNTER 2025-10-09 17:25 | Emergency (ER) | payer BC ==
[~2025-10-09] VITALS: Ht 182.9 cm; Wt 74.1 kg
[2025-10-09 17:30] VITALS: BP 123/90; PULSE 120; RESP 18; O2SAT 97
--- NOTE | 2025-10-09 17:40 | ELECTROCARDIOGRAPH REPORT ---
[facility] Test Date: 2025-10-09 Test Time: 17:38:17 Pat Name: TAMMY PERRY Department: [facility]-ER Patient ID: [facility]-[id number] Room: Gender: M [employer]ender: : 1975 Requested By: LILLIE KOWALSKI Order Number: [id number] Reading MD: Dr. KEDAR Hand Measurements Intervals Naylor Rate: 123 P: 77 CT: 163 QRS: 60 QRSD: 89 T: 14 QT: 295 QTc: 422 Interpretive Statements Sinus tachycardia Consider right atrial enlargement Electronically Signed On 10-10-2025 16:52:[address] KEDAR Hand Please click the below link to view image of tracing.
[2025-10-09] MEDS ORDERED: DOXY100C43 PO (17:44)
[2025-10-09 17:45] VITALS: TEMP 98.7
--- NOTE | 2025-10-09 17:45 | Physician Documentation ---
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 Redness and mild swelling been present for 2-3 days without noted fever. Patient has full range of motion grossly neurologically intact radial median ulnar nerve. No evidence of abscess. No reported IV drug use. Tetanus within 5 years?: No Medication Reconciliation Allergies: Coded Allergies: No Known Allergies (Unverified , 10/09/25) Scheduled Bupropion HCl (Bupropion HCl), 1 TAB PO DAILY, (Reported) Doxycycline Monohydrate (Doxycycline Monohydrate), 100 MG PO BID Folic Acid* (Folic Acid*), 1 MG PO DAILY Gabapentin (Gabapentin), 1 CAP PO Q8H Hydroxyzine Hcl* (Atarax*), 1 TAB PO HS, (Reported) Insulin Lispro (Humalog), 5 UNITS SQ TID, (Reported) Lamotrigine (LaMICtal tablet), 1 TAB PO BID, (Reported) Lisdexamfetamine Dimesylate (Vyvanse), 1 CAP PO DAILY, (Reported) Lisinopril* (Lisinopril*), 1 TAB PO DAILY, (Reported) Metoclopramide HCl (Reglan), 1 TAB PO Q8H Montelukast Sodium (Singulair), 1 TAB PO DAILY, (Reported) Multivitamin with Folic Acid (Thera Tablet), 1 EACH PO Q24H Pantoprazole Sodium (Pantoprazole Sodium), 1 TAB PO BID, (Reported) Pantoprazole Sodium (Pantoprazole Sodium), 1 TAB PO DAILY Semaglutide (Ozempic), 0.25 MG SQ Q7D, (Reported) Venlafaxine Hcl (Venlafaxine Hcl Er), 1 CAP PO DAILY, (Reported) [thiamine tablet], 100 MG PO DAILY Miscellaneous Medications Gabapentin (Gabapentin ER), (Reported) Past Medical History Past Medical History: Pancreatitis, Diabetes Past Surgical History: no surgical history Alcohol Use: Alcoholic Drug Use: none Lives with: Family Lives In: Home Occupation: disabled Review of Systems All Other Systems at this time: Reviewed and Negative Constitutional: Denies: fever Physical Exam Vital Signs: RN Vital Signs have been reviewed: Yes, Temperature: 98.7, Source: Oral, Heart Rate: 120, Respiratory Rate: 18, BP: 123/90, Pulse Oximetry: 97, Weight: 74.100 Oxygen Flow Rate: 0 General Appearance: alert, WD/WN, other (Anxiousness) Eyes, Ears, Nose: PERRL/EOMI Oropharynx/Lips: normal inspection Airway: patent Neck: normal inspection Respiratory: no respiratory distress Gastrointestinal: non-tender Extremities: normal range of motion Neurologic: oriented x4 Psychiatric: normal mood/affect Skin: erythema (Erythema 3 x 2 cm to the distal right volar surface) Progress Results/Orders Results/Orders Vital Signs 10/09/25 10/09/25 17:30 17:45 Temp 98.7 98.7 Pulse 120 Resp 18 B/P (MAP) 123/90 Pulse Ox 97 O2 Flow Rate 0 Medical Decision Making Additional information obtaine: N/A Findings 49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 No lymphangitis noted. Patient will be placed on antibiotic coverage positive with recommendations for 72 hour recheck. Safely discharge. Differential Dx:Considerations: Include: Abrasion, Allergic reaction, Anaphylaxis, Cellulitis, Insect envenomation, Punture wound, Retained foreign body Departure Disposition: 01 HOME / SELF CARE / HOMELESS Impression: Primary Impression: Cellulitis Qualified Codes: L03.113 - Cellulitis of right upper limb Condition: Improved Discharge Instructions: Cellulitis, Adult Additional Instructions: Please begin antibiotics as directed and do warm moist soaks 3 times a day. Please return for follow up with your primary care physician in 72 hours. Referrals: NO PRIMARY CARE PROVIDER (PCP) Prescriptions Doxycycline Monohydrate (Doxycycline Monohydrate) 100 Mg Capsule 100 MG PO BID, #20 CAP may sub doxycycline hyclate or azithromycin z-pack as prescribed Prov: LOU GASCA PAC 10/09/25 Education Educated: Patient Educated regarding: diagnosis, treatment, prognosis, need for follow up Signature Scribe Signature: . Attestation: . LOU GASCA PAC Oct 09, 2025 17:45
== END 2025-10-09 17:51 | disposition home or self-care (01) ==
LOC: ER 17:26
DX: L03.113 Cellulitis of right upper limb (principal); E11.9 Type 2 diabetes mellitus without complications; F10.90 Alcohol use, unspecified, uncomplicated; Z87.19 Personal history of other diseases of the digestive system; Z79.899 Other long term (current) drug therapy; Z79.4 Long term (current) use of insulin; Y90.9 Presence of alcohol in blood, level not specified
CPT/HCPCS: 93005; 99283

== ENCOUNTER 2025-10-21 13:53 | Emergency (ER) | payer BC, MEDICAID ==
[~2025-10-21] VITALS: Ht 182.9 cm; Wt 74.6 kg
[~2025-10-21 13:53] MED LIST changes: +DOXY100C43 PO
[2025-10-21 13:56] VITALS: BP 136/100; PULSE 105; O2SAT 97
--- NOTE | 2025-10-21 14:40 | Physician Documentation ---
History of Present Illness ~ Chief Complaint: Shoulder pain Stated Complaint: R SHOULDER/ELBOW PAIN Time Seen by MD: 15:53 Primary Medical Doctor: Jimmy FOFANA This is a 49-year-old male who presents with right shoulder and elbow pain for the past several days after moving a large amount of heavy hay and feed bags, patient reports he meals weighing up to 125 lb and feed bags up to 50 lb each. Patient reports the pain is worse with movement of the arm. Patient reports he has follow up with his primary care provider tomorrow though is requesting something for pain today. Patient reports history of pain from overuse to the elbow and shoulder in the past which he has received treatment by a shot here. Patient reports no other acute symptoms or concerns. Tetanus within 5 years?: No Medication Reconciliation Allergies: Coded Allergies: No Known Allergies (Unverified , 10/21/25) Scheduled Bupropion HCl (Bupropion HCl), 1 TAB PO DAILY, (Reported) Doxycycline Monohydrate (Doxycycline Monohydrate), 100 MG PO BID Folic Acid* (Folic Acid*), 1 MG PO DAILY Gabapentin (Gabapentin), 1 CAP PO Q8H Hydroxyzine Hcl* (Atarax*), 1 TAB PO HS, (Reported) Insulin Lispro (Humalog), 5 UNITS SQ TID, (Reported) Lamotrigine (LaMICtal tablet), 1 TAB PO BID, (Reported) Lisdexamfetamine Dimesylate (Vyvanse), 1 CAP PO DAILY, (Reported) Lisinopril* (Lisinopril*), 1 TAB PO DAILY, (Reported) Metoclopramide HCl (Reglan), 1 TAB PO Q8H Montelukast Sodium (Singulair), 1 TAB PO DAILY, (Reported) Multivitamin with Folic Acid (Thera Tablet), 1 EACH PO Q24H Pantoprazole Sodium (Pantoprazole Sodium), 1 TAB PO BID, (Reported) Pantoprazole Sodium (Pantoprazole Sodium), 1 TAB PO DAILY Semaglutide (Ozempic), 0.25 MG SQ Q7D, (Reported) Venlafaxine Hcl (Venlafaxine Hcl Er), 1 CAP PO DAILY, (Reported) [thiamine tablet], 100 MG PO DAILY Miscellaneous Medications Gabapentin (Gabapentin ER), (Reported) Past Medical History Past Medical History: Pancreatitis, Diabetes Past Surgical History: no surgical history Alcohol Use: Alcoholic Drug Use: none Lives with: Family Lives In: Home Occupation: disabled Review of Systems ROS As stated above in the HPI, otherwise all systems are reviewed and negative. Physical Exam Vital Signs: Temperature: 97.7, Heart Rate: 105, Respiratory Rate: 12, BP: 136/100, Pulse Oximetry: 97, Weight: 74.600 Oxygen Flow Rate: 0 Physical Exam VITALS: Reviewed and as above. GENERAL: Alert, nontoxic appearing, no apparent distress. RESPIRATORY: No increased work of breathing, no respiratory distress, speaking in full clear sentences CV: Brisk capillary refills to fingers of right hand MUSCULOSKELETAL: Tenderness to anterior shoulder, no obvious deformity, tenderness to posterior elbow minimal to no swelling, no obvious deformity, no tenderness to anterior elbow, range of motion intact though limited due to pain, no micro motion tenderness to elbow or shoulder SKIN: Erythema or ecchymosis to skin of right shoulder or arm NEURO: Sensation intact to right hand Progress Results/Orders Results/Orders Orders - YANI CRUZ Elbow, Complete (3vw Min) (10/21/25 15:48) Shoulder, Complete (Min 2 Vws) (10/21/25 15:48) Completed Orders - YANI CRUZ Elbow, Complete (3vw Min) (10/21/25 15:48) Shoulder, Complete (Min 2 Vws) (10/21/25 15:48) Ketorolac Trometh 15mg/Ml Vial (Toradol (10/21/25 16:35) Vital Signs 10/21/25 10/21/25 10/21/25 10/21/25 13:56 15:43 16:36 17:30 Temp 97.7 97.7 Pulse 105 Resp 12 18 16 B/P (MAP) 136/100 Pulse Ox 97 O2 Flow Rate 0 Laboratory Tests Test 10/21/25 13:58 Glucometer 289 H EKG/XRAY/CT/US/VASC/MRI Bone/Soft Tissue X-Ray (Ext.) #1: Additional Comment Exam: SHOULDER, COMPLETE (MIN 2 VWS) EXAM: DI SHOULDER, COMPLETE (MIN 2 VWS) HISTORY: pain COMPARISON: DI SHOULDER, COMPLETE (MIN 2 VWS) on DOS: 10/07/25, DI SHOULDER, COMPLETE (MIN 2 VWS) on DOS: 05/03/24 TECHNIQUE: 2 views of the right shoulder were performed. FINDINGS: No acute fracture or dislocation are identified about the right shoulder. There is acromioclavicular hypertrophy without significant loss of subacromial space. IMPRESSION: 1. No acute fracture of the right shoulder. 2. Acromioclavicular hypertrophy. Electronically Signed by:DEONNA MIKE MD Date & Time: 10/21/25 1622 Dictated by: DEONNA MIKE MD Dictation date and time: 10/21/25 1600 I have reviewed and agree with the radiology report. I have reviewed and interpreted the imaging as: No fracture or dislocation Bone/Soft Tissue X-Ray (Ext.) #2: Additional Comment Exam: ELBOW, COMPLETE (3VW MIN) EXAM: DI ELBOW, COMPLETE (3VW MIN) HISTORY: pain COMPARISON: DI ELBOW, COMPLETE (3VW MIN) on DOS: 07/04/24, DI FOOT, COMPLETE (3VW MIN) on DOS: 07/04/24 TECHNIQUE: Three views of the right elbow were performed. FINDINGS: No acute fracture is identified about the right elbow. There is ulnotrochlear and radiocapitellar osteoarthritis. There may be calcific intra-articular loose bodies anteriorly. Calcification adjacent to the lateral humeral epicondyle is consistent with chronic epicondylosis. There are positive anterior and posterior fat pad signs. IMPRESSION: 1. No acute fracture of the right elbow. 2. Osteoarthritis. 3. Chronic calcific lateral epicondylosis. 4. Positive anterior and posterior fat pad signs consistent with joint effusion or hemarthrosis, which may be due to osteoarthritis or occult fracture. If there is high clinical suspicion for occult fracture, follow-up noncontrast CT or MRI could be performed. Electronically Signed by:DEONNA MIKE MD Date & Time: 10/21/25 1621 Dictated by: DEONNA MIKE MD Dictation date and time: 10/21/25 1600 I have reviewed and agree with the radiology report. I have reviewed and interpreted the imaging as: No fracture or dislocation Medical Decision Making Additional information obtaine: old records Findings This 49-year-old male presented with pain to his right shoulder after using his arm to move many heavy objects, imaging did not demonstrate evidence of fracture or dislocation, the possible elbow effusion noted on radiology report though due to the not traumatic nature of injury I have low suspicion for acute fracture. The arm is neurovascularly intact and he has good follow up with primary care provider tomorrow, patient was medicated pain in the emergency department and discharged to follow up with primary care tomorrow. Patient provided home care instructions return to care precautions, and follow up instructions which he verbalized understanding of. Differential Dx:Considerations: Include: AC separation, Adhesive capsulitis, arthritis, Bicipital tendonitis, Calcific tendonitis, Cervical disc disease, Contusion, Dislocation, Fracture: Humerus, Fracture: Scapula, Fracture: Clavicl e, Hematoma, Impingement syndrome, Myocardial infarction, Neurovascular Injury, Rotator cuff injury, SC dislocation, Sprain Departure Time of Disposition: 17:27 Disposition: 01 HOME / SELF CARE / HOMELESS Impression: Primary Impression: Shoulder pain Qualified Codes: M25.511 - Pain in right shoulder Condition: Improved Discharge Instructions: Shoulder Pain Additional Instructions: Please follow up with your primary care provider in the next few days. Please return to the emergency department for any new or worsening concerning symptoms. Referrals: NO PRIMARY CARE PROVIDER (PCP) Education Educated: Patient Educated regarding: diagnosis, treatment, prognosis, need for follow up Signature Scribe Signature: No scribe Attestation: The note accurately reflects work and decisions made by me.ENRIKE Lockhart 10/22/25 12:08 YANI CRUZ Oct 21, 2025 14:40
--- NOTE | 2025-10-21 16:23 | RADIOLOGY REPORT ---
EXAM: DI ELBOW, COMPLETE (3VW MIN) HISTORY: pain COMPARISON: DI ELBOW, COMPLETE (3VW MIN) on DOS: 07/04/24, DI FOOT, COMPLETE (3VW MIN) on DOS: 07/04/24 TECHNIQUE: Three views of the right elbow were performed. FINDINGS: No acute fracture is identified about the right elbow. There is ulnotrochlear and radiocapitellar osteoarthritis. There may be calcific intra-articular loose bodies anteriorly. Calcification adjacent to the lateral humeral epicondyle is consistent with chronic epicondylosis. There are positive anterior and posterior fat pad signs. IMPRESSION: 1. No acute fracture of the right elbow. 2. Osteoarthritis. 3. Chronic calcific lateral epicondylosis. 4. Positive anterior and posterior fat pad signs consistent with joint effusion or hemarthrosis, which may be due to osteoarthritis or occult fracture. If there is high clinical suspicion for occult fracture, follow-up noncontrast CT or MRI could be performed.
--- NOTE | 2025-10-21 16:24 | RADIOLOGY REPORT ---
EXAM: DI SHOULDER, COMPLETE (MIN 2 VWS) HISTORY: pain COMPARISON: DI SHOULDER, COMPLETE (MIN 2 VWS) on DOS: 10/07/25, DI SHOULDER, COMPLETE (MIN 2 VWS) on DOS: 05/03/24 TECHNIQUE: 2 views of the right shoulder were performed. FINDINGS: No acute fracture or dislocation are identified about the right shoulder. There is acromioclavicular hypertrophy without significant loss of subacromial space. IMPRESSION: 1. No acute fracture of the right shoulder. 2. Acromioclavicular hypertrophy.
[2025-10-21 16:36] VITALS: RESP 16
[2025-10-21] MEDS: ketorolac trometh 15mg/ml vial 15 MG/ML ML IM ONE (16:36)
[2025-10-21 17:30] VITALS: TEMP 97.7
== END 2025-10-21 17:32 | disposition home or self-care (01) ==
LOC: ER 13:54
DX: M25.511 Pain in right shoulder (principal); E11.9 Type 2 diabetes mellitus without complications; Z87.19 Personal history of other diseases of the digestive system; Z79.899 Other long term (current) drug therapy; Z79.4 Long term (current) use of insulin
CPT/HCPCS: 73030; 73080; 82948; 96372; 99284; J1885

== ENCOUNTER 2025-10-24 19:55 | Emergency (ER) | payer BC, MEDICAID ==
[~2025-10-24] VITALS: Ht 182.9 cm; Wt 65.0 kg
[2025-10-24 19:59] VITALS: BP 138/100; PULSE 99; RESP 15; TEMP 96.3; O2SAT 99
== END 2025-10-24 22:44 | disposition left against medical advice (07) ==
LOC: ER 19:55
DX: M25.519 Pain in unspecified shoulder (principal); F10.90 Alcohol use, unspecified, uncomplicated; Z53.21 Procedure and treatment not carried out due to patient leaving prior to being seen by health care provider; Y90.9 Presence of alcohol in blood, level not specified
CPT/HCPCS: 99281

== ENCOUNTER 2025-11-04 07:56 | Emergency (ER) | payer BC, MEDICAID ==
[~2025-11-04] VITALS: Ht 182.9 cm; Wt 75.1 kg
[~2025-11-04 07:56] MED LIST changes: -DOXY100C43 PO
[2025-11-04 08:09] VITALS: BP 124/80; PULSE 93; RESP 18; TEMP 98.3; O2SAT 98
== END 2025-11-04 11:47 | disposition left against medical advice (07) ==
LOC: ER 07:56
DX: S50.861A Insect bite (nonvenomous) of right forearm, initial encounter (principal); Z53.21 Procedure and treatment not carried out due to patient leaving prior to being seen by health care provider; W57.XXXA Bitten or stung by nonvenomous insect and other nonvenomous arthropods, initial encounter; Y93.89 Activity, other specified; Y92.89 Other specified places as the place of occurrence of the external cause; Y99.8 Other external cause status
CPT/HCPCS: 99281